=== PATIENT | female | born 1965 | race African-American/Black ===

== ENCOUNTER 2018-03-30 10:48 | Outpatient (CLI) | payer BC, OTHER ==
--- NOTE | 2018-03-31 09:57 | Mammography Report ---
Reason: SCREENING MAMMO Procedure Date: 03/30/2018 Accession Number: [id number] / [id number] Procedure: MGN - Screening Mammo Dig Bilat CPT Code: FULL RESULT: EXAM: Screening Mammo Dig Bilat DATE: 03/30/2018 11:08 AM CLINICAL HISTORY: Screening encounter. Family history of breast cancer in a sister at the age of 27 and an aunt at the age of 32. TECHNIQUE: Bilateral CC and MLO views were obtained. COMPARISON: 09/25/2010 through 01/08/2007. FINDINGS: The breasts demonstrate scattered fibroglandular densities bilaterally. Previously surveyed right breast calcifications in the right breast demonstrate no significant interval change compared to 2011, typically benign. No suspicious masses, clustered microcalcifications, or regions of architectural distortion are identified. IMPRESSION: Benign findings RECOMMENDATION: Routine annual screening unless otherwise clinically indicated. BIRADS CATEGORY 2: Benign findings STANDARD QUALIFYING STATEMENTS: 1. This examination was reviewed with the aid of Computer-Aided Detection (CAD). 2. A negative or benign imaging report should not preclude biopsy if clinically suspicious findings are present. 3. Dense breasts may obscure an underlying neoplasm. 4. This examination was reviewed without the aid of 3D breast imaging (tomosynthesis).
== END 2018-03-30 10:49 | disposition home or self-care (01) ==
LOC: DI.N 10:48
PROVIDERS: ATTEND Obstetrics & Gynecology
DX: Z12.31 Encounter for screening mammogram for malignant neoplasm of breast (principal); Z80.3 Family history of malignant neoplasm of breast
CPT/HCPCS: 77067

== ENCOUNTER 2018-04-09 13:16 | Outpatient (CLI) | payer BC, OTHER ==
--- NOTE | 2018-04-09 18:38 | XRAY Report ---
Reason: PAIN IN FINGER Procedure Date: 04/09/2018 Accession Number: [id number] / [id number] Procedure: XRN - Finger(s) LT CPT Code: FULL RESULT: EXAM: LEFT RING FINGER RADIOGRAPHY EXAM DATE: 04/09/2018 01:32 PM. CLINICAL HISTORY: PAIN IN FINGER. COMPARISON: None. TECHNIQUE: 3 views. FINDINGS: Bones: No fracture or bone lesion. Joints: No subluxations. Soft Tissues: No soft tissue swelling. IMPRESSION: Normal left ring finger radiography RADIA
== END 2018-04-09 13:17 | disposition home or self-care (01) ==
LOC: DI.N 13:16
PROVIDERS: ATTEND Internal Medicine
DX: M79.645 Pain in left finger(s) (principal); M06.9 Rheumatoid arthritis, unspecified; M13.89 Other specified arthritis, multiple sites; M79.7 Fibromyalgia; M85.80 Other specified disorders of bone density and structure, unspecified site
CPT/HCPCS: 73140

== ENCOUNTER 2018-10-03 15:14 | Outpatient (CLI) | payer BC, OTHER ==
--- NOTE | 2018-10-05 08:21 | Ultrasound Report ---
Reason: HEREDITARY AND IDIOPATHIC NEUROPATHY, UNSPECIFIED Procedure Date: 10/03/2018 Accession Number: [id number] / [id number] Procedure: US - Duplex Lwr Ext Arterial Bilat CPT Code: FULL RESULT: EXAM: Bilateral Lower Extremity Arterial Doppler Ultrasound EXAM DATE: 10/03/2018 04:08 PM. CLINICAL HISTORY: Hereditary and idiopathic neuropathy, unspecified in a 53-year-old female. COMPARISON: None. TECHNIQUE: Real-time sonographic vascular imaging was performed by the medical underwriter, utilizing color-flow, Doppler flow, and spectral analysis. Multiple community representative static images were saved for review. FINDINGS: Arterial flow well demonstrated bilaterally with normal blood flow and PSV. No obstruction, extensive atherosclerotic plaque or other abnormality noted. Right Lower Extremity: DECALER: PSV 102 cm/sec. Triphasic waveform. PSFA: PSV 108 cm/sec. Triphasic waveform. MSFA: PSV 91 cm/sec. Triphasic waveform. DSFA: PSV 65 cm/sec. Triphasic waveform. PFA: PSV 64 cm/sec. Monophasic waveform. POP: PSV 52 cm/sec. Triphasic waveform. PARUL: PSV 48 cm/sec. Triphasic waveform. PRODUCT EVANGELIST: PSV 67 cm/sec. Triphasic waveform. TA: PSV 53 cm/sec. Triphasic waveform. DPA: PSV 70 cm/sec. Triphasic waveform. Left Lower Extremity: DECALER: PSV 90 cm/sec. Triphasic waveform. PSFA: PSV 115 cm/sec. Triphasic waveform. MSFA: PSV 79 cm/sec. Triphasic waveform. DSFA: PSV 78 cm/sec. Triphasic waveform. PFA: PSV 64 cm/sec. Triphasic waveform. POP: PSV 61 cm/sec. Triphasic waveform. PARUL: PSV 58 cm/sec. Triphasic waveform. PRODUCT EVANGELIST: PSV 46 cm/sec. Triphasic waveform. TA: PSV 29 cm/sec. Biphasic waveform. DPA: PSV 63 cm/sec. Triphasic waveform. IMPRESSION: Normal bilateral arterial blood flow both lower extremities. RADIA
== END 2018-10-03 15:15 | disposition home or self-care (01) ==
LOC: DI 15:14
PROVIDERS: ATTEND Internal Medicine
DX: G60.9 Hereditary and idiopathic neuropathy, unspecified (principal)
CPT/HCPCS: 93925

== ENCOUNTER 2018-10-09 14:52 | Outpatient (CLI) | payer BC, OTHER | END 2018-10-09 23:59 | disposition home or self-care (01) | LOC: LAB.R 14:52 | PROVIDERS: ATTEND Physician Assistant Medical | DX: R35.0 Frequency of micturition (principal) | CPT/HCPCS: 87086 ==

== ENCOUNTER 2019-09-14 13:49 | Outpatient (CLI) | payer BC, OTHER ==
[2019-09-14] MEDS ORDERED: GADOBUTROL 7.5 MMOL/7.5 ML VIAL ONE (13:57)
[2019-09-14] MEDS ORDERED: GADOBUTROL 7.5 MMOL/7.5 ML VIAL IVP ONE (15:23)
--- NOTE | 2019-09-14 16:48 | MRI Report ---
PROCEDURE: Brachial Plexus W/WO INDICATIONS: NEOPLASM OF UNCERT BEHAV OF CONNECTV SOFT TISS CONTRAST: IV CONTRAST: Gadavist ml: 7.5 TECHNIQUE: Noncontrast axial, coronal, and sagittal T1 spin echo and STIR through the affected brachial plexus r egion. Additional axial T1 spin echo and coronal T2 fast spin echo acquired through both brachial pl exuses with a large [id number]. Optional contrast may be given, followed by axial, coronal, and s agittal T1 spin echo with fat saturation through the affected side. COMPARISON: None. FINDINGS: Image quality: Motion artifact is noted. Brachial plexus: The brachioplexus demonstrates an unremarkable appearance, without jann abnormal s ignal or enhancement. There is minimal mass effect seen upon the brachial plexus from the right supra clavicular mass. Soft tissues: There is a soft tissue mass seen within the supraclavicular region posteriorly that me asures 4.8 x 3.2 x 3.6 cm. This mass demonstrates a heterogeneous appearance and demonstrates relativ franck prominent enhancement. This mass is seen posterior to the brachial plexus, although it abuts the brachial plexus on several images, as on series 401 image 4. A similar-appearing mass can be seen inv olving the left supraclavicular region anteriorly, as on series 401 image 9 and on series 701 image 4 measuring 1.4 x 1.7 cm in greatest axial dimension and measures 1.9 cm craniocaudally. No supraclavicular adenopathy by size criteria. Superior pleural surfaces are normal in thickness. Jugular veins and carotid arteries appear normal in size. Bones: Marrow demonstrates normal overall signal. S-shaped scoliotic curvature is incidentally not ed. IMPRESSION: Bilateral supraclavicular masses are seen. Differential diagnosis includes schwannoma, schwannoma, an d metastatic disease. The right-sided mass is seen posterior to the brachial plexus, yet is seen immediately adjacent to th e brachial plexus on several images. Mild mass effect is seen upon the brachial plexus from posterior ly. The right brachial plexus itself demonstrates no significant abnormality or abnormal enhancement on these images. Please correlate with patient's symptoms. Reviewed by: Basim Whitfield MD on 09/14/2019 3:47 PM KT Approved by: Basim Whitfield MD on 09/14/2019 3:47 PM AKRHONDA Station ID: [id number]
== END 2019-09-14 13:50 | disposition home or self-care (01) ==
LOC: DI 13:49
PROVIDERS: ATTEND Psychiatry & Neurology Neurology
DX: R22.1 Localized swelling, mass and lump, neck (principal)
CPT/HCPCS: 71552; A9585

== ENCOUNTER 2023-04-01 11:24 | Emergency (ER) | payer BC, OTHER ==
[2023-04-01 12:48] LABS: BILIRUBIN,URINE NEGATIVE (NEGATIVE); GLUCOSE, URINE (UA) NEGATIVE (NEGATIVE); KETONES,URINE (UA) NEGATIVE (NEGATIVE); LEUKOCYTE ESTERASE, URINE NEGATIVE (NEGATIVE); NITRITE,URINE NEGATIVE (NEGATIVE); OCCULT BLOOD,URINE NEGATIVE (NEGATIVE); PROTEIN,URINE NEGATIVE (NEGATIVE); UROBILINOGEN,URINE 0.2 (NORMAL) E.U./dL (NORMAL)
[2023-04-01 12:50] LABS: CLARITY,URINE CLEAR (CLEAR)
[2023-04-01] MEDS ORDERED: DEXAMETHASONE 10 MG/ML VIAL IM STA (12:56)
[2023-04-01] MEDS ORDERED: HYDROmorphone 1 MG/ML CARPUJECT IM STA (12:56)
--- NOTE | 2023-04-01 14:14 | ED Physician Documentation ---
History of Present Illness - Stated complaint Stated Complaint: BACK PX - Chief complaint Chief Complaint: Back Pain - History obtained from History obtained from: Patient - Additonal information Additional information: The pt is sent to the ED for CC of low back pain. This has been going on for years and gradually worsening. She had MRI a long time ago, and has been seeing a loan documentation specialist, who would like to get MRI and most likely, do surgery, per pt. The pt is awaiting MRI at this time. The pt was sent here from urgent care because she has decreased sensation in both legs and per urgent care provider, reported "saddle anesthesia". The urgent care provider stated she did not examine the pt to determine whether the pt had absent sensation in her perineal area. The pt states that the numbness has been going on for a long time, and extends all the way up her legs. She has reported all sx to her neurosurgeon. She denies new or acutely worsening sx. No incontinence of urine or feces. No retention. No weakness in legs that is new, though pt states with the decreased sensation, she cannot use her legs well. No fevers. No other complaints at this time. The pt states she is trying to get better pain control so she can tolerate MRI. Currently, she is not on any prescription analgesia. PD PAST MEDICAL HISTORY - Past Medical History Past Medical History: Yes Cardiovascular: None Respiratory: None Neuro: None Endocrine/Autoimmune: None GI: None MASS SPECTROMETRY MANAGER: None : None HEENT: None Psych: None Musculoskeletal: Osteoarthritis, Chronic back pain Derm: None - Past Surgical History Past Surgical History: Yes Ortho: Knee replacement, Shoulder arthroplasty, Carpal Tunnel surgery, Other /MASS SPECTROMETRY MANAGER: Hysterectomy - Present Medications Home Medications: Ambulatory Orders Medication Instructions Recorded Confirmed DULoxetine [Cymbalta] 60 mg PO DAILY 04/01/23 04/01/23 Gabapentin [Neurontin] 300 mg PO TID 04/01/23 04/01/23 HYDROcod/ACETAM 5/325 [[place] 5/325] 1 - 2 tablet PO Q6H PRN #20 tablet 04/01/23 Meloxicam 7.5 mg PO DAILY 04/01/23 04/01/23 predniSONE [Deltasone] 10 mg PO [id number] #42 tab 04/01/23 - Allergies Allergies/Adverse Reactions: Allergies Allergy/AdvReac Type Severity Reaction Status Date / Time latex Allergy Hives Verified 04/01/23 11:39 morphine Allergy Hives Verified 04/01/23 11:39 - Social History Does the pt smoke?: No Smoking Status: Never smoker Does the pt drink ETOH?: Yes ETOH Use: Wine Does the pt have substance abuse?: No - Immunizations Immunizations are current?: No PD ED PE NORMAL - Vitals Vital signs reviewed: Yes - General General: Alert and oriented X 3, No acute distress, Well developed/nourished - HEENT HEENT: Atraumatic, PERRL, EOMI, Moist mucous membranes - Neck Neck: Supple, no meningeal sign - Cardiac Cardiac: RRR, No murmur, Strong equal pulses - Respiratory Respiratory: No respiratory distress, Clear bilaterally - Abdomen Abdomen: Soft, Non tender, Non distended - Back Back: Other (TTP broadly across lumbar area, including spine and musculature, but most pronounced in the musculature. No palpable deformity.) - Derm Derm: Normal color, Warm and dry, No rash - Extremities Extremities: No deformity, No edema - Neuro Neuro: Alert and oriented X 3, recovery assistant 2-12 intact, Normal speech, Other (The pt ambulates with a walker and has symmetrically decreased sensation in both lower extremities.) - Psych Psych: Normal mood, Normal affect Results - Vitals Vitals: Oxygen O2 Source Room air - Labs Labs: Laboratory Tests 04/01/23 12:42 Urine Color YELLOW Urine Clarity CLEAR Urine pH 6.0 Ur Specific Duson 1.025 Urine Protein NEGATIVE Urine Glucose (UA) NEGATIVE Urine Ketones NEGATIVE Urine Occult Blood NEGATIVE Urine Nitrite NEGATIVE Urine Bilirubin NEGATIVE Urine Urobilinogen 0.2 (NORMAL) Ur Leukocyte Esterase NEGATIVE Ur Microscopic Review NOT INDICATED Urine Culture Comments NOT INDICATED PD Medical Decision Making - ED course Complexity details: considered differential, d/w patient ED course: The pt had chronic sx which were gradually worsening, and was already under the care of a neurosurgeon, with plans for definitive management. I did not find evidence of acute worsening that would raise concern for acute spinal cord compromise. As such, I did offer symptomatic treatment in the ED and as an outpatient, and have advised the pt to continue to work with her loan documentation specialist. We have discussed the usual indications for return. Departure - Departure Disposition: 01 Home, Self Care Clinical Impression: Back pain Qualifiers: Back pain location: low back pain Chronicity: chronic Back pain laterality: bilateral Sciatica presence: without sciatica Qualified Code(s): M54.50 - Low back pain, unspecified Condition: Stable Instructions: ED Chronic Pain Management, ED Neck Back Pain General Prescriptions: predniSONE [Deltasone] 10 mg PO [id number] #42 tab HYDROcod/ACETAM 5/325 [[place] 5/325] 1 - 2 tablet PO Q6H PRN #20 tablet PRN Reason: Pain Comments: There is no evidence of an emergent condition today. It is very important that you continue to work with your primary doctor and loan documentation specialist to get the MRI done so you can move forward with surgery. We have started you on some medication to hopefully help get your back pain doing better so you can get your MRI. A prescription has been electronically transmitted to the [facility] in [place], your pharmacy of choice on record. Please pick this up this afternoon. Discharge Date/Time: 04/01/23 14:27
[2023-04-01 14:30] VITALS: BP 117/90; O2SAT 98
== END 2023-04-01 14:27 | disposition home or self-care (01) ==
LOC: ED 11:24
DX: M54.50 Low back pain, unspecified (principal)
CPT/HCPCS: 81003; 96372; 99283; J1170; 81001; 87086

== ENCOUNTER 2024-01-13 09:10 | Inpatient (IN) ==
--- NOTE | 2024-01-13 11:11 | ED Physician Documentation ---
PD HPI ANIMAL BITE Stated complaint Stated Complaint: DOG BITE Chief complaint Chief Complaint: Wound History obtained from History obtained from: Patient (This is a right-handed woman with unknown tetanus status with history of back issues but otherwise medically healthy. She actually rolled over her dog and it bit her with wounds on the left forearm. No other injuries. Pain is severe.) Meds/Allgy Home Medications Ambulatory Orders Medication Instructions Recorded Confirmed duloxetine 30 mg capsule,delayed 60 mg PO DAILY 04/01/23 04/01/23 release gabapentin 300 mg capsule 300 mg PO TID 04/01/23 04/01/23 hydrocodone 5 mg-acetaminophen 325 1 - 2 tab PO Q6H PRN Pain #20 tabs 04/01/23 mg tablet meloxicam 7.5 mg tablet 7.5 mg PO DAILY 04/01/23 04/01/23 prednisone 10 mg tablet 10 mg PO [id number] #42 tabs 04/01/23 Allergies Allergies Allergy/AdvReac Type Severity Reaction Status Date / Time latex Allergy Hives Verified 01/13/24 09:50 morphine Allergy Hives Verified 01/13/24 09:50 [facility] Medical History Medical History (Updated 01/13/24 @ 11:21 by Antony Nobles MD) Chronic back pain Surgical History Surgical History (Updated 01/13/24 @ 09:49 by Ariane Sparks RN, BSN) S/P hernia repair Social History Social History Smoking Status: Never smoker Do you vape?: No Relationship: Do you feel safe in your home environment?: Yes Suffered physical, verbal, emotional, or financial abuse?: No History of Abuse: No ETOH Use: Wine Frequency: Occasional POLST Patient has POLST: No Exam Constitutional normal general appearance Extremities On the dorsal forearm there are 2 larger lacerations about two [address] way down the forearm, on the anterior forearm there are several puncture wounds. She has diminished sensation in a ulnar distribution but not absent. Tendon strength will be tested after pain medication and anesthesia. Results Vitals Vitals: Vital Signs - 24 hr 01/13/24 09:20 01/13/24 11:21 01/13/24 11:21 Temperature 36.8 C Pulse Rate 69 Respiratory Rate 18 Blood Pressure 143/81 H O2 Saturation 100 O2 Source Room air Pain Intensity 10 10 10 10/22/24 11:37 Temperature Pulse Rate 77 Respiratory Rate 20 Blood Pressure 139/103 H O2 Saturation 97 O2 Source Room air Pain Intensity 10 Oxygen O2 Source Room air Procedures Splint (location) - Minor Left forearm: Splint applied by: Physician Type of splint: Fiberglass, Short arm and Volar cock up Other: Patient tolerated well PD Medical Decision Making ED course ED course: She is significant dog bite wounds to the left forearm, tetanus was updated and I ordered a dose of Unasyn. X-ray demonstrates an angulated distal ulnar fracture which would be considered an open injury and I discussed the case by phone with Dr. Marcos Mahoney at 11:15 AM who plans to take her to the operating room later in the day. He does asked that we irrigated and I will get her some pain control first as she has been in quite a bit of pain. Dr. Mahoney requested elbow x-rays which were performed as well. Then I irrigated the wounds with 2 L of saline, placed in bacitracin, Telfa, and a splint to temporize pain until she gets to the OR. Discharge Plan Discharge Patient Disposition: ED Transfer to [facility] Condition: Stable Clinical Impression: Animal bite with open wound Open fracture of left ulna Qualifiers: Encounter type: initial encounter Ulna location: distal Open fracture type: open type I or II Fracture morphology: other fracture Qualified Code(s): S52.692B - Other fracture of lower end of left ulna, initial encounter for open fracture type I or II Prescriptions: No Action meloxicam 7.5 MG tablet 7.5 mg PO DAILY Patient Comments: take 1 tablet by mouth daily gabapentin 300 MG capsule 300 mg PO TID Patient Comments: take 1 capsule by mouth three times a day duloxetine 30 MG capsule,delayed release(DR/EC) 60 mg PO DAILY Patient Comments: Take 2 capsules (60 mg) by mouth daily hydrocodone-acetaminophen 1 TAB tablet 1 - 2 tab PO Q6H PRN (Reason: Pain) Qty: 20 0RF Rx Instructions: Take 1-2 tablets every 6 hours as needed prednisone 10 MG tablet 10 mg PO [id number] Qty: 42 0RF Rx Instructions: Day 1-4: Take 60mg (6 tablets) daily; Day 5-7: Take 40mg (4 tablets) daily; Day 8-10: Take 20mg (2 tablets) daily Print Language: Czech Stand Alone Forms: PCP List
[2024-01-13] MEDS: LIDOCAINE 1%-EPI 1:100000 20 ML MDV SUBQ STA (11:20)
[2024-01-13] MEDS: HYDROmorphone 1 MG/ML CARPUJECT IVP STA ×3 (11:21→14:19)
[2024-01-13] MEDS: KETOROLAC 15 MG/ML VIAL IVP STA (11:21)
[2024-01-13] MEDS: AMPICILLIN/SULBACTAM 3 GM in SODIUM CHLORIDE 0.9% MINIBAG 100 ML IV STA (11:23)
--- NOTE | 2024-01-13 11:29 | XRAY Report ---
PROCEDURE: XR Forearm LT INDICATIONS: dog bite TECHNIQUE: 2 views of the forearm were acquired. COMPARISON: None. FINDINGS: Bones: Transverse, displaced fracture of the distal ulna. Soft tissues: No suspicious soft tissue calcifications or masses. Defect in the lateral soft tissues consistent with laceration. IMPRESSION: Displaced distal ulnar fracture. Reviewed by: Yanely King MD, PhD on 01/13/2024 11:27 AM PDT Approved by: Yanely King MD, PhD on 01/13/2024 11:27 AM PDT Station ID: [id number]
[2024-01-13] MEDS: BACITRACIN ZINC OINT 1 PACKET TOP STA (11:45)
--- NOTE | 2024-01-13 11:48 | XRAY Report ---
PROCEDURE: XR Elbow 3+V LT INDICATIONS: forearm injury, pain TECHNIQUE: 3 views of the elbow were acquired. COMPARISON: None. FINDINGS: Bones: No fractures or dislocations. No suspicious bony lesions. Soft tissues: No effusion. No suspicious soft tissue calcifications or masses. IMPRESSION: No acute bony abnormality or significant joint effusion. Reviewed by: Yanely King MD, PhD on 01/13/2024 11:46 AM PDT Approved by: Yanely King MD, PhD on 01/13/2024 11:46 AM PDT Station ID: [id number]
--- OUTSIDE RECORDS SUMMARY | 2024-01-13 14:49 | EXTERNAL MEDICAL SUMMARY RPT ---
Author Name Santino Esposito Address Unknown Organization [facility] Address [address] [place] [address] Phone [phone] Care Team Providers Care Circuit Board Inspector Name Role Phone Lyndon OLIVIERGermaineMackenzie Unavailable [phone] Jason ROSALES-CEstrellita Unavailable [phone] PROBLEMS Condition Status Date Provider Notes Sciatica, right side active [place] PA-C Back pain, low active [place] PA -C GOUT active Estrellita ROSALES-C FOOT PAIN completed - Estrellita Gomez PA-C EDEMA active Estrellita Gomez PA-C VAGINITIS/VULVOVAGINIT IS NOS active Bethel Gonsalves D.O. URINARY FREQUENCY active Estrellita Gomez P A-C U R I completed - Estrellita Gomez PA-C DIARRHEA completed - Estrellita Gomez PA-C VENTRAL HERNIA active Estrellita Gomez PA-C ABDOMINAL PAIN, LEFT LOWER QUADRANT completed - Estrellita Gomez PA-C PNEUMONIA active Estrellita Gomez PA-C HOT FLASHES active Panfilo Serra MD ARTHRITIS, PYOGENIC, SHOULDER active Panfilo Serra MD DERMATITIS, CONTACT, NOS active Estrellita L Young PA-C BRONCHITIS, ACUTE active Preston morales, Credit Resolution Representative PARONYCHIA completed - Dwight Anderson MD EUSTACHIAN TUBE DYSFUNCTION active Dwight Anderson MD ASTHMA active Dwight Anderson MD BRONCHITIS-ACUTE completed - Dwight Anderson MD TUBAL LIGATION, HX OF active Preston Pennington, Credit Resolution Representative FRACTURE, ANKLE, RIGHT active Preston Pennington, Credit Resolution Representative repair with pin/plate x OVERWEIGHT active Preston Pennington, Credit Resolution Representative MIGRAINE HEADACHE active Preston morales, Credit Resolution Representative GERD active Preston Pennington, Credit Resolution Representative ENCOUNTERS Date Type Provider Location Encounter Diagnosis - Registration status (finding) Registration Update TXITG Admin [facility] ALLERGIES Allergy Name Onset Date Reaction Criticality Status LATEX rash rash High Criticality active MORPHINE itch, rash High Criticality active HISTORY OF MEDICATION USE Medication Status Instructions Dates Provider Indications Com ments tramadol 50 mg tablet active Take 1 tablet by mouth at bedtime [place] PA-C meloxicam 15 mg tablet active Take 1 tablet by mouth once a day as needed for pain for pain [place] PA-C PROAIR HFA 108 active Inhale 2 puff every four hours as needed Aneudy Gallagher MA albuterol sulfate 2.5 mg/3 mL (0.083 %) solution for nebulization active 1 ampul every four hours as needed Aneudy Gallagher MA ZITHROMAX Z-ANGELINE 250 MG ORAL TABLET completed Take two tablets by mouth today, then one daily for four days - Estrellita Gomez PA-C FLOVENT HFA 110 MCG/ACT INHALATION AEROSOL completed 2 inhalations twice daily, rinse out mouth after use - Sherlyn Rust LPN, Lead CHERATUSSIN AC 100-10 MG/5ML ORAL SYRUP completed 1-2 teaspoon every four to six hours as needed - Aneudy Gallagher MA prednisone 20 mg tablet completed Take 2 by mouth once a day - Aneudy Gallagher MA ZITHROMAX Z-ANGELINE 250 MG ORAL TABLET completed 2 po today, then one daily x 4days - Panfilo Serra MD CHERATUSSIN AC 100-10 MG/5ML ORAL SYRUP completed one to 2 teaspoons every four to six hours if needed for cough - Belen Vogel MA PREDNISONE 20 MG ORAL TABLET completed 2 po daily for 5 days - Kristin Penny LPN ZITHROMAX Z-ANGELINE 250 MG ORAL TABLET completed 2 po today, then one daily x 4days - Estrellita Gomez PA-C Colcrys 0.6 mg tablet active 1 po up to three times a day as needed for gout attacks, taper as sx improve Aneudy Gallagher MA VICODIN 5-500 MG TABS completed 1-2 PO every 6 hours PRN Pain - Belen Vogel MA MEDROL 4 MG ORAL TABLET THERAPY PACK completed as directed - Estrellita Gomez PA-C CELEBREX 200 MG ORAL CAPSULE completed Take one po daily - Belen Vogel MA Migranal 0.5 mg/pump act. (4 mg/mL) spray,non-aeros ol active 1 spray into both nostrils Aneudy Gallagher MA Ventolin HFA 90 mcg/actuation HFA aerosol inhaler completed 2 puff every four hours as needed - Aneudy Gallagher MA ZITHROMAX Z-ANGELINE 250 MG ORAL TABLET completed 2 po today, then one daily x 4days - Estrellita Gomez PA-C PREDNISONE 20 MG ORAL TABLET completed 2 po daily for 5 days - Kristin Penny LPN nystatin 100,000 unit/gram ointment completed Apply twice a day as needed - Aneudy Gallagher MA DIFLUCAN 150 MG ORAL TABLET completed one po daily for 3 days - [place] H ROBIN Penny FLONASE 50 MCG/ACT NASAL SUSPENSION active 2 spray into both nostrils once a day Aneudy Gallagher MA METROGEL-VAGINA L 0.75 % VAGINAL GEL completed place 1 applicator intravaginally qhs - Bethel Humphrey Schejasminet D.O. PROMETHAZINE HCL 25 MG ORAL TABLET completed 1 PO q6 hours prn nausea - [place] Melody Penny LPN CLEOCIN 150 MG ORAL CAPSULE completed Take 2 capsules by mouth four times a day - Bethel Humphrey Scheidt D.O. AMOXICILLIN 500 MG ORAL CAPSULE completed One capsule by mouth three times a day - Bethel Humphrey Scheidt D.O. Percocet 10-325 mg tablet completed 1 by mouth every four hours as needed - Aneudy Gallagher MA Premarin 0.625 mg tablet active 1 tablet once a day Aneudy Gallagher MA Zyrtec 10 mg tablet active 1 tablet once a day Aneudy Gallagher MA LEVAQUIN 500 MG ORAL TABLET completed 1 PO daily - Estrellita Gomez PA-C CHERATUSSIN AC 100-10 MG/5ML ORAL SYRUP completed one to 2 teaspoons every four to six hours if needed for cough - [place] Melody Penny LPN ESTRADIOL 1 MG ORAL TABLET completed one tablet po daily - Eleanor Ruiz LPN PREDNISONE 20 MG ORAL TABLET completed 2 po daily for 5 days - Eleanor Ruiz LPN PROTOPIC 0.1 % EXTERNAL OINTMENT completed apply twice daily to affected area - [place] Townsamuel PennyROBIN Singulair 10 mg tablet active 1 by mouth once a day Aneudy Gallagher MA ADVAIR DISKUS 250-50 MCG/DOSE INHALATION AEROSOL POWDER BREATH ACTIVATED completed 1 inhalation twice daily - Estrellita Gomez PA-C Combivent Respimat 20-100 mcg/actuation mist active 1 puff four times a day Aneudy Gallagher MA HYCOTUSS EXPECTORANT 5-100 MG/5ML SYRP completed 1 to 2 tsps po q 4-6 hrs prn cough - Eleanor Ruiz LPN ZITHROMAX Z-ANGELINE 250 MG ORAL TABLET completed 2 po today, then one daily x 4days - Maxim Nichols M.D. ZANTAC 150 MG ORAL TABLET active 1 by mouth once a day Aneudy Gallagher MA GAS-X 80 MG ORAL TABLET CHEWABLE active Preston Pennington, Credit Resolution Representative DETROL LA 4 MG ORAL CAPSULE EXTENDED RELEASE 24 HOUR completed one po daily - Eleanor Ruiz LPN TREATMENT PLAN Date Name PHYSICAL THERAPY CON SULTATION HISTORY OF PROCEDURES Procedure Date Procedure Name Provider Procedure Notes S tatus IM or SQ Injection [place] PA-C completed Ketorolac Tromethami ne 15 mg/ml Soln [place] PA-C completed POC URINALYSIS DIP [place] PA-C completed Visit Code Hold [place] PA-C completed Nebulizer Treatment Estrellita L Y oung PA-C completed ADVANCE DIRECTIVES Name Date [facility] CONSENT TO CONFIRMATION OF APPT DATE/TIME 01/05/15 - [facility] 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 RX [employer]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 01/05/15 - [facility] CONSENT TO RELEASE ALL HEALTHCA RE INFO 01/05/15 - FAMILY/RX HIPAA - TAYLER DINERO 10-09-0912/28/21 - SOCIAL HISTORY Date Observation Value Provider social history [facility] E&M reviewed - no changes required [place] PA-C drug use no Shira [place] C-MA alcohol use no Shira [place] C-MA seatbelt usage 100 % Shira O'Ernesto l C-MA exercise type Stairs Shira [place] C-MA physical exercise, frequency, days per week 5 /wk Shria [place] C-MA caffeine use, averag e drinks per day 0 /d Shira [place] C-MA passive cigarette sm seferino exposure no Shira [place] C-MA chewing tobacco use Never Shira O '[place] C-MA smoking status Never smoker Shira O'Ernesto l C-MA seatbelt usage 100 % Sherlyn Rust MAINTENANCE REPAIRMAN, Lead physical exercise, frequency, days per week 5 /wk Sherlyn Rust MAINTENANCE REPAIRMAN, Lead alcohol use no Sherlyn Rust L PN, Lead caffeine use, averag e drinks per day 0 /d Sherlyn Rust MAINTENANCE REPAIRMAN, Lead drug use no Sherlyn Reece PN, Lead passive cigarette sm seferino exposure no Sherlyn Rust MAINTENANCE REPAIRMAN, Lead chewing tobacco use Never Sherlyn Rust MAINTENANCE REPAIRMAN, Lead smoking status Never smoker Sherlyn Rust MAINTENANCE REPAIRMAN, Lead passive cigarette sm seferino exposure no Belen Vogel MA chewing tobacco use Never Belen Vogel MA smoking status Never smoker Belen Vogel MA smoking status never [place] H Pe n[place], MAINTENANCE REPAIRMAN smoking status never [place] H Pe n[place], MAINTENANCE REPAIRMAN seatbelt usage 100 % Crystal TL Ru ybal, MAINTENANCE REPAIRMAN exercise type Stairs Crystal TL Jose Eduardo bal, MAINTENANCE REPAIRMAN physical exercise, frequency, days per week 7 /wk Crystal TL Ruybal, MAINTENANCE REPAIRMAN alcohol use, type Once in a while Crystal TL Ruybal, MAINTENANCE REPAIRMAN caffeine use, averag e drinks per day 0 /d Crystal TL Ruybal, MAINTENANCE REPAIRMAN drug use no Crystal TL Ruyb al, MAINTENANCE REPAIRMAN passive cigarette sm seferino exposure no Crystal TL Ruybal, MAINTENANCE REPAIRMAN social history revie wed E&M reviewed - no changes required Kayla Rojas MA social history E&M Patient has n ever smoked. A lcohol Use - yes Kayla Rojas MA smoking status never Kayla pan MA smoking status never [place] RADHA [employer] VITAL SIGNS Date Observation Value Provider blood pressure, cuff size large Ch Vish Argueta Edwards-Linda [place] blood pressure, site #1 L. arm sitting Ch Vish Argueta Edwards-Linda NIDIA blood pressure, diastolic 92 mm[Hg] Ch Vish Argueta Yong-Linda NIDIA blood pressure, systolic 138 mm[Hg] Chr isSamia Argueta Yong-Linda NIDIA pulse rate 62 /min Aneudy pipern-Linda NIDIA respiratory rate E&M 18 /min Kalina Argueta Yong-Linda NIDIA temperature site oral Aneudy Argueta Yong-Linda NIDIA temperature E&M 98.3 [degF] Aneudy Gallagher MA Body Mass Index (Ratio) 33.30 kg/m2 Abdieli Terra Gallagher MA weight E&M 175.6 [lb_av] Aneudy Romero MA height E&M 61.0 [in_i] Aneudy Tovar MA
[2024-01-13] MEDS ORDERED: SODIUM CHLORIDE FLUSH 0.9% 10 ML SYRINGE IVP PRN (14:52)
[2024-01-13] MEDS ORDERED: ONDANSETRON ODT 4 MG TABLET TL PRN (14:52)
[2024-01-13] MEDS: AMPICILLIN/SULBACTAM 3 GM in SODIUM CHLORIDE 0.9% MINIBAG 100 ML IV SCH ×2 (16:08→22:52)
[2024-01-13] MEDS: GABAPENTIN 300 MG CAPSULE PO SCH (16:08)
[2024-01-13] MEDS: SODIUM CHLORIDE FLUSH 0.9% 10 ML SYRINGE IVP SCH (16:09)
[2024-01-13] MEDS: diphenhydrAMINE 25 MG CAPSULE PO PRN (16:09)
--- NOTE | 2024-01-13 16:40 | PHARMACY PROGRESS NOTE ---
Best Possible Medication History Admit Date and Time: 01/13/24 [id number] Processed by: Pharmacy Medications reviewed in ED?: No Medication History completed: Yes Patient Interview: Completed Secondary Source(s): Insurance records [facility] Statement: As the person ultimately responsible for medication therapy, providers are able to order a medication from an existing home medication list in [facility] via the "Reconcile Routine" prior to Confirmation of that medication by technical sales support specialist. Such practice is discouraged except when the physician, in their clinical judgment, deems that a medical need exists for a medication without regard to previous use.
[2024-01-13] MEDS: oxyCODONE 5 MG TABLET PO PRN (19:33)
[2024-01-13] MEDS: ACETAMINOPHEN 325 MG TABLET PO PRN (19:42)
--- NOTE | 2024-01-13 21:15 | PREOP HISTORY & PHYSICAL ---
Surgical History & Physical Chief Complaint/HPI Chief Complaint: CC: Left Forearm Dog bite and distal ulnar shaft fracture on 01/13/24 History of Present Illness: 58yo F presented to the emergency department on January 13, 2024 from a dog bite. She reports that she was sleeping in the same bed with her sons jayda and when she rolled over on him he bit her left forearm. She had immediate pain and bleeding from the arm. She presented to the emergency department where they found her multiple puncture wounds and open injury. After radiographs they identified a distal ulnar fracture and orthopedics was consulted. On arrival to the emergency room the patient was already splinted and had been injected with local anesthetic. She reports minimal pain in her left forearm. Denies any other injuries. Denies loss of function. Home Meds and Allergies Active Medications Generic Name Dose Route Start Last Admin Trade Name Freq PRN Reason Stop Dose Admin Acetaminophen 650 mg 01/13/24 14:52 01/13/24 19:42 Acetaminophen 325 Mg Tablet PO 650 mg Q4HR PRN Administration Pain 1 to 4, or Fever Diphenhydramine HCl 25 mg 01/13/24 15:57 01/13/24 16:09 Diphenhydramine 25 Mg Capsule PO 25 mg Q8HR PRN Administration Allergy Symptoms Ampicillin Sodium/Sulbactam 100 mls @ 200 mls/hr 01/13/24 22:30 Sodium 3 gm/ Sodium Chloride IV Q6HR LISSETTE Cefazolin Sodium 2 gm/ Sodium 100 mls @ 200 mls/hr 01/14/24 07:00 Chloride IV 01/14/24 07:29 ONCE ONE Ondansetron HCl 4 mg 01/13/24 14:52 Ondansetron Odt 4 Mg Tablet TL Q6HR PRN Nausea / Vomiting Oxycodone HCl 5 mg 01/13/24 14:52 01/13/24 19:33 Oxycodone 5 Mg Tablet PO 5 mg Q4HR PRN Administration Pain 5 to 7 Sodium Chloride 10 ml 01/13/24 14:52 Sodium Chloride Flush 0.9% 10 Ml Syringe IVP PRN PRN NEEDED PER PROVIDER ORDERS Sodium Chloride 10 ml 01/13/24 17:00 01/13/24 16:09 Sodium Chloride Flush 0.9% 10 Ml Syringe IVP 10 ml 0100,0900,1700 LISSETTE Administration acetaminophen 500 mg tablet 500 mg PO Q4H PRN pain 01/13/24 Allergies Allergy/AdvReac Type Severity Reaction Status Date / Time latex Allergy Hives Verified 01/13/24 09:50 morphine Allergy Hives Verified 01/13/24 09:50 Vital Signs O2 Saturation: 96 Patient Review Patient Review Pertinent Tests Reviewed [facility] Medical History Medical History (Updated 01/13/24 @ 11:21 by Antony Nobles MD) Chronic back pain Surgical History Surgical History (Updated 01/13/24 @ 09:49 by Ariane Sparks, RN, BSN) S/P hernia repair Social History Social History Smoking Status: Never smoker Do you vape?: No Relationship: Spouse Level: Independent Home Mobility Equipment: Walker Do you feel safe in your home environment?: Yes Suffered physical, verbal, emotional, or financial abuse?: No History of Abuse: No ETOH Use: Wine Frequency: Occasional Substance Use: cannabis (any form) POLST Patient has POLST: No Exam Exam LEFT forearm: Multiple puncture wounds throughout the volar and dorsal aspect of the forearm. 6 cm laceration over the dorsum of the mid forearm. 2 cm laceration just distal to the larger wound. Moderate edema. No active bleeding. Patient unwilling to participate in motor exam Sensation was diminished due to previous injection 2+ Radial pulse, brisk cap refil to all digitsIMAGING: LEFT Wrist radiographs on January 13, 2024: Comminuted displaced distal ulnar shaft fracture. Multiple soft tissue injuries noted. Assessment & Plan Assessment & Plan Assessment & Plan: 58yo RHD F with open lacerations from a dog bite and distal ulnar fracture. It was explained to the patient that both her open injuries and her displaced ulnar fracture of both surgical indications. I explained to the patient that she will require an open reduction and internal fixation of the distal ulna and irrigation and debridement of all of her open wounds. I would like to admit the patient overnight for IV antibiotics. The emergency department already had started her antibiotics, updated her tetanus and irrigated the wounds. She was placed in a volar resting splint. The risk, benefits and alternatives of the procedure were discussed with the patient to include bleeding, infection, damage to surrounding structures, ongoing pain, malunion, nonunion, need for additional surgeries, symptomatic hardware and anesthesia risk such as heart attack, stroke and . The patient understood these risks and want to move forward with the procedure. She was consented for a left distal ulnar ORIF and left forearm I&D. Consent was completed in the emergency department and her operative extremity was signed. Orthopedic admission Nonweightbearing left upper extremity Volar resting splint IV antibiotics N.p.o. at midnight Operating room tomorrow morning Plan for the patient to stay 2 nights for IV antibiotics and discharge likely on January 15, 2024 The documentation in this note may have been entered with the assistance of computer voice recognition and dictation software. Therefore, it may contain unintended errors in text, spelling, punctuation, or grammar. Marcos Mahoney MD Orthopedic Surgeon
[2024-01-14] MEDS ORDERED: SEVOFLURANE 250 ML LIQUID INH ONE (07:07)
[2024-01-14] MEDS ORDERED: MIDAZOLAM 2 MG/2 ML VIAL ONE (07:08)
[2024-01-14] MEDS ORDERED: fentaNYL 100 MCG/2 ML VIAL ONE ×2 (07:08→09:31)
[2024-01-14] MEDS ORDERED: PROPOFOL 200 MG/20 ML VIAL IVP ONE ×2 (07:08→09:30)
[2024-01-14] MEDS ORDERED: LIDOCAINE-PF 2% 10 ML AMP SUBQ ONE (07:08)
[2024-01-14] MEDS ORDERED: BUPIVACAINE 0.25% PF 30 ML VIAL ONE ×2 (07:09→08:32)
[2024-01-14] MEDS ORDERED: LACTATED RINGERS 1,000 ML ONE (07:21)
[2024-01-14] MEDS ORDERED: ROCURONIUM 50 MG/5 ML VIAL ONE ×2 (07:23→08:56)
--- NOTE | 2024-01-14 07:23 | ANESTHESIA PROCEDURE NOTE ---
Pre-Anesthesia VS, & Labs Diagnosis Surgical Diagnosis:: open L ulnar fx, dog bite wounds Procedure Procedure: ORIF L ulnar fx Vitals Vital Signs: Temp Pulse Resp BP Pulse Ox 37.1 C 96 H 24 136/92 H 98 01/14/24 00:08 01/14/24 00:08 01/14/24 00:08 01/14/24 00:08 01/14/24 00:08 NPO NPO: >8 hours Is Patient ?: No Lab Results Lab results reviewed: Yes Meds/Allgy Home Medications Ambulatory Orders Medication Instructions Recorded Confirmed acetaminophen 500 mg tablet 500 mg PO Q4H PRN pain 01/13/24 01/13/24 Allergies Allergies Allergy/AdvReac Type Severity Reaction Status Date / Time latex Allergy Hives Verified 01/13/24 09:50 morphine Allergy Hives Verified 01/13/24 09:50 PFSH Medical History Medical History (Updated 01/13/24 @ 11:21 by Antony Nobles MD) Chronic back pain Surgical History Surgical History (Updated 01/13/24 @ 09:49 by Ariane Sparks RN, BSN) S/P hernia repair Social History Social History Smoking Status: Never smoker Do you vape?: No Relationship: Spouse Level: Independent Home Mobility Equipment: Walker Do you feel safe in your home environment?: Yes Suffered physical, verbal, emotional, or financial abuse?: No History of Abuse: No ETOH Use: Wine Frequency: Occasional Substance Use: cannabis (any form) POLST Patient has POLST: No Anesthesia Exam (Expanded) Exam General: Alert, Oriented x3 and Cooperative Dental: WNL Mouth Opening: Greater than 4 Fingerbreadths Neck Mobility: Normal Mallampati classification: I Thyromental Distance: 4-6 cm Respiratory: Lungs clear and Normal breath sounds Cardiovascular: Regular rate, Normal S1 and Normal S2 Neurological: Normal speech Mental/Cognitive Status: Alert/Oriented X3 and Normal for patient Cognitive Status: Within normal limits Plan Plan Anesthesia Type: General Consent for Procedure(s) Verified and Reviewed: Yes Code Status: Attempt Resuscitation ASA Classification ASA classification: 2-Mild systemic disease Is this case an emergency?: No
[2024-01-14] MEDS: ceFAZolin (2G) 2 GM in SODIUM CHLORIDE 0.9% MINIBAG 100 ML IV ONE (07:34)
[2024-01-14] MEDS ORDERED: PHENYLEPHRINE HCL 0.5 MG/5 ML AMPULE ONE (08:10)
[2024-01-14] MEDS ORDERED: DEXAMETHASONE 4 MG/ML VIAL ONE (08:16)
[2024-01-14] MEDS ORDERED: ONDANSETRON 4 MG/2 ML VIAL ONE (08:16)
[2024-01-14] MEDS ORDERED: ePHEDrine 50 MG/ML VIAL IVP ONE (08:27)
[2024-01-14] MEDS ORDERED: DULoxetine 60 MG CAPSULE PO SCH (09:00)
[2024-01-14] MEDS ORDERED: SUGAMMADEX 200 MG/2 ML VIAL IVP ONE (09:17)
[2024-01-14] MEDS ORDERED: METOCLOPRAMIDE 10 MG/2 ML VIAL IVP PRN (09:56)
[2024-01-14] MEDS ORDERED: ATROPINE ABBOJECT 1 MG/10 ML SYRINGE IVP PRN (09:56)
[2024-01-14] MEDS ORDERED: MORPHINE 2 MG/ML CARPUJECT IVP PRN (09:56)
[2024-01-14] MEDS ORDERED: NALOXONE 0.4 MG/ML VIAL IVP PRN (09:56)
[2024-01-14] MEDS ORDERED: ePHEDrine 50 MG/ML VIAL IVP PRN (09:56)
[2024-01-14] MEDS ORDERED: ONDANSETRON 4 MG/2 ML VIAL IVP PRN (09:56)
[2024-01-14] MEDS: LACTATED RINGERS 1,000 ML IV SCH (10:06)
[2024-01-14] MEDS: fentaNYL 100 MCG/2 ML VIAL IVP PRN (10:18)
--- NOTE | 2024-01-14 10:44 | XRAY Report ---
PROCEDURE: FL OR C-Arm Procedure INDICATIONS: ORIF LEFT WRIST FLUORO TIME: 0.2 MIN TECHNIQUE: 2 intraoperative views of the left wrist. COMPARISON: Left forearm radiographs 01/13/2024. FINDINGS: Plate and screw fixation spanning the distal ulnar fracture. There is anatomic alignment. Hardware pr ojects in expected location. IMPRESSION: Intraoperative guidance provided. Left distal ulnar ORIF. Reviewed by: Yony Ken MD on 01/14/2024 10:43 AM PDT Approved by: Yony Ken MD on 01/14/2024 10:43 AM PDT Station ID: [id number]
[2024-01-14] MEDS ORDERED: HYDROmorphone 1 MG/ML CARPUJECT ONE (10:46)
[2024-01-14] MEDS: HYDROmorphone 0.5 MG/0.5 ML SYRINGE IVP PRN (10:55)
--- NOTE | 2024-01-14 11:32 | ANESTHESIA POST OP EVALUATION ---
Anesthesia Post Eval Post Anesthesia Eval Vitals: Last Vital Signs Temp 36.7 C 01/14/24 11:10 Pulse 77 01/14/24 11:15 Resp 12 01/14/24 11:15 BP 119/78 01/14/24 11:15 Pulse Ox 97 01/14/24 11:15 CV Function Including HR & BP: Stable Pain Control: Satisfactory Nausea & Vomiting: Negative Mental Status: Baseline Respiratory Status: Airway Patent Hydration Status: Satisfactory Anesthesia Complications: None
--- NOTE | 2024-01-14 13:27 | OPERATIVE REPORT ---
Operative Report General Admit Date: 01/13/24 Procedure Data: Operation Date: 01/14/24 07:30 Proposed Procedures p ORIF LEFT ULNA WITH IRRIGATION & DEBRIDEMENT(Left) - Marcos Mahoney MD Actual Procedures p ORIF LEFT ULNA WITH IRRIGATION & DEBRIDEMENT(Left) - Marcos Mahoney MD Pre-Op Diagnosis: OPEN LT ULNAR FX W/ IRRIGATION & DEBRIDEMENT Anesthesia Type General Case Staff Anesthesia Provider: Bill Castaneda Assisting Provider: Hailee Cummins Rep: HIMA GARCIA. Case Times Into Recovery: 01/14/24 10:06 Procedure Start: 01/14/24 08:24 Procedure End: 01/14/24 10:00 Time out: 01/14/24 08:20 Implants PUTTY BONE MATRIX [id number] SCR CTX 2.7X14MM T8 S-T PLATE 2.7X61MM 8 HOLE COMP SCR CTX 2.7X12MM T8 S-T SCR CTX 2.7X13MM T8 S-T SCR 2.7X12MM LOCK T8 S-T Tourniquet Tourniquet #: Tourniquet Site Padding: Pressure: Applied by: Time up #1: Time Down #1: Time Up #2: Time Down #2: Pre-Op Diagnosis: Dog bite with soft tissue lacerations and distal ulna fracture Post Op Diagnosis: EMILY Procedure Note Estimated Blood Loss (ml): 20 Indications: Unstable open distal ulna fracture with multiple forearm lacerations. Complications: None Other Other Information/Narrative: Pre-Op Diagnosis: Unstable, open distal ulnar fracture and multiple lacerations from a dog bite Post-Op Diagnosis: EMILY Procedure Procedure(s): Open Reduction and Internal Fixation of the Closed Distal Ulna Fracture I&D of the left forearm Surgeon: Marcos Mahoney MD Co-Surgeon: Hailee Cummins PA Physician Shipping Room Helper was used throughout the entirety of the case. They assisted with room set up, patient positioning, draping, retraction, reduction, fixation and closure. They were essential for the success of the case. Anesthesia Type: General EBL: 20cc Specimens Removed: None Complications: None Implants/Grafts: Borrero and Nephew 2.7mm plate and 2.7mm locking screws distally and cortical screws proximally Drains: No lines, drains, or airways are recorded for this episode. Findings: Displaced distal ulna fracture, reduced and fixed Multiple pucture wounds and lacerations about the left forearm Narrative: The patient was met in the pre-operative hold area. Consent was verified. Operative extremity was signed. All questions were answered. They were brought to the operating room and surrendered to anesthesia. Once general anesthesia was obtained they were prepped and draped. A time out was performed. The left forearm lacerations and puncture wounds were all irrigated with 9L of sterile fluid. There was no evidence of gross contamination. An esmarch was used to exsanguinate the limb and the tourniquet was elevated. THe level of fracture was identified with fluoro. This was then the center of the incision. We used a direct lateral approach through skin. Then contineud the dissection with mets. The fracture site was then identified and the fracture was cleaned with knife, currette and irrigation. THere was significant bone loss on the volar aspect of the fracture. We were able to get a good fracture read off the dorsal cortex. THe reduction was performed with axial traction. Since the fracture was transverse we were unable to pin or place a lag screw. We utilized a 2.7 plate to help with the reduction. We confirmed plate location and fracture reduction in AP and lateral fluoro. The place was then held in place with 2 locking 2.7 screws distally and 3 cotrical screws proximally. Her cortical loss volarly was filled with DBX bone puddy. Final images were taken at various angles to confirm the location of the screws and plate. The wound was irrigated copiously. The skin was closed loosely with 3-0 nylon. 50cc of 0.25% marcaine without epinephrine was placed. A sterile dressing and splint was applied. Postoperative Plan: Volar resting splint until 2 weeks. Xrays. Sutures out Short Arm Cast for 2 weeks, xrays Removable brace & ROM for 4 weeks, xrays Advance weight bearing at 8 weeks if things are going well. Foot on the ground activities from 8-12 weeks. Marcos Mahoney MD
--- NOTE | 2024-01-14 16:34 | XRAY Report ---
PROCEDURE: XR Lumbar Spine 2-3V INDICATIONS: Concern for cauda equina syndrome TECHNIQUE: 3 views of the lumbar spine were acquired. COMPARISON: None. FINDINGS: Surgical change: None. Bones: 5 [id number] vertebrae are present. Lower lumbar facet arthropathy. 9 mm anterolisthesis of L4 on L5. 8 mm anterolisthesis of L5 on S1. No vertebral body compression fractures. No suspicio us bony lesions. Soft tissues: Overlying bowel gas pattern is normal. No suspicious soft tissue calcifications. IMPRESSION: Lower lumbar facet arthropathy with anterolisthesis. No acute bony abnormality noted. Comment: It is noted that the patient is scheduled undergo lumbar spine MRI today. Reviewed by: Livan Mason MD on 01/14/2024 4:33 PM PDT Approved by: Livan Mason MD on 01/14/2024 4:33 PM PDT Station ID: [id number]
[2024-01-14] MEDS: LORazepam 1 MG TABLET PO ONE (16:41)
--- NOTE | 2024-01-14 16:50 | XRAY Report ---
PROCEDURE: XR Wrist 1-2V LT INDICATIONS: post operative imaging TECHNIQUE: 2 views of the wrist were acquired. COMPARISON: 01/11/2024 FINDINGS: Bones: Interval surgical fixation of the ulna, with anatomic alignment. Soft tissues: No suspicious soft tissue calcifications or masses. IMPRESSION: Surgical fixation of the ulna, with anatomic alignment. Reviewed by: Xavier Wasserman MD on 01/14/2024 4:49 PM PDT Approved by: Xavier Wasserman MD on 01/14/2024 4:49 PM PDT Station ID: [id number]
--- NOTE | 2024-01-14 17:53 | MRI Report ---
PROCEDURE: MRI Lumbar Spine WO INDICATIONS: Cauda Equina Syndrome Rule Out TECHNIQUE: Noncontrast sagittal T1 spin echo and T2 fast echo, sagittal STIR, axial T1 and T2 fast spin echo thr ough the lumbar spine. In cases with scoliosis, additional coronal T2 fast spin echo may be performe d. COMPARISON: 01/14/2024 FINDINGS: Image quality: Excellent. Alignment and Curvature: 1 cm anterolisthesis of L5 on S1. Bone Marrow: Modic type I changes across L4-5 and Modic type II changes across L5-S1. No acute verte bral body compression fractures. Spinal Cord: Conus medullaris terminates at the L2 level. Visualized cord demonstrates normal signa l and size. Paraspinous Soft Tissues: No paravertebral masses. T12-L1: Facet hypertrophy and small facet effusions. L1-L2: Facet hypertrophy and small facet effusions. L2-L3: Facet hypertrophy and small facet effusions. L3-L4: Facet hypertrophy, ligamentum flavum hypertrophy, broad-based disc bulge causing severe spin al canal narrowing. L4-L5: Facet hypertrophy, ligamentum flavum hypertrophy, broad-based disc bulge causing severe spin al canal narrowing. Severe bilateral neural foraminal narrowing. L5-S1: Facet hypertrophy, ligamentum flavum hypertrophy, broad-based disc bulge causing severe spin al canal narrowing. Severe bilateral neural foraminal narrowing. IMPRESSION: Severe spinal canal narrowing at L3-4, L4-5 and L5-S1 due to degenerative disc disease and facet hype rtrophy. Severe bilateral neural foraminal narrowing at L4-5 and L5-S1. Reviewed by: Xavier Wasserman MD on 01/14/2024 5:51 PM PDT Approved by: Xavier Wasserman MD on 01/14/2024 5:51 PM PDT Station ID: [id number]
[2024-01-14 20:18] VITALS: O2SAT 97
--- NOTE | 2024-01-14 21:21 | Discharge Summary ---
"Discharge Summary Admit Date: 01/13/24 Discharge Date: 01/14/24 Discharging Provider: Hailee Quiles PA-C Primary Care Provider: [facility] Medical Code Status: Attempt Resuscitation DIAGNOSES Admission Diagnoses: Open left ulna fracture Discharge Diagnoses with Status of Each Condition: Open left ulna fracture - ORIF of left ulna with irrigation and debridement Severe spinal and foraminal stenosis - newly reported, unchanged status HPI History of Present Illness: 58 year old female presented to the emergency department on January 13, 2024 from a dog bite to the left arm. She reported that she was sleeping in the same bed with her son's jayda and when she rolled over onto the dog causing the dog to bite her left forearm. She had immediate pain and bleeding from the arm. She presented to the emergency department where she was found to have an open wound and several puncture wounds. Left forearm radiographs identified a distal ulnar fracture and orthopedics was consulted. On arrival of the Orthopedic team to the emergency room, the patient was already splinted and had been injected with local anesthetic.Her wounds were irrigated with 1.5L of normal saline prior to orthopedic evaluation. She reported minimal pain in her left forearm during orthopedic evaluation. She denied any other injuries and loss of function to the left hand. CONSULTS | PROCEDURES Procedures: Open reduction internal fixation - left ulna Lumbar spine radiographs Lumbar spine MRI HOSPITAL COURSE Hospital Course: On January 13, 2024 the patient was admitted to [facility]. She recieved ampicillin/sulbactam IV every 6 hours for management of open left ulna fracture. On 01/14/24 the patient underwent ORIF left unla with plate and screws ([employer]) by Dr Mahoney without complication. The open injury and puncture wounds were irrigated and debrided and approximated loosely with nylon suture. She was placed in a plaster volar splint which was secured with an varghese wrap. There were no known immediate complications. IV antibiotics were resumed upon return to the floor from the operating room. Prior to transfer the patient was planned to discharge home on post operative day 1 after 24 hours of IV antibiotics. She would have then transferred to oral antibiotics and followed up with [facility] 2 weeks after surgery. Upon post operative rounding, the patient stated she had difficulty moving to the bathroom due to poor bowel control. She also endorsed saddle anesthesia and bilateral lower extremity weakness and numbness although she does have a history of peripherial neuropathy. The patient reports a chronic history of lumbar pain which worsened without injury about 2 weeks ago leading to the bowel and bladder incontinence, paresthesias and weakness. She had not mentioned this to her PCP or any other provider during her admission. A Stat MRI of the lumbar spine and radiographs of the lumbar spine were obtained. Imaging indicated severe spinal and foraminal stenosis. In the setting of progressive weakness, saddle anesthesia and bowel and bladder incontinence, the patient was transferred to [facility] for further management due to lack of orthopedic spine surgery at [facility]. Dr Mahoney facilitated this transfer and was present for patient rounding and evaluation. ALLERGIES Allergies Allergy/AdvReac Type Severity Reaction Status Date / Time latex Allergy Hives Verified 01/13/24 09:50 morphine Allergy Hives Verified 01/13/24 09:50 MEDICATIONS Ambulatory Orders Medication Instructions Recorded Confirmed acetaminophen 500 mg tablet 500 mg PO Q4H PRN pain 01/13/24 01/13/24 PHYSICAL EXAM AT DISCHARGE Physical Exam Other/Comments: Well developed, well nourished, 58 year old female, no acute distress, elevated BMI Left wrist: Volar left wrist splint is clean, dry and intact Reported diminished sensation to light touch about C8 nerve distribution only Finger flexion and extension intact post-operatively however limited by patient pain DIAGNOSTIC IMAGING Diagnostic Imaging Results: Final report reviewed FOLLOW UP Follow Up: Dr Marcos Mahoney, [facility] - 2 weeks post operatively TIME SPENT Time Spent in Discharge (Minutes): 30 Discharge Plan Discharge Patient Disposition: 02 Transfer Acute Care Hosp Condition: Stable Prescriptions: No Action acetaminophen 500 mg tablet 500 mg PO Q4H PRN (Reason: pain) Activity Restrictions: Additional Comments Activity Restrictions/Additional Instructions: You had an open reduction internal fixation of the left ulna on 01/14/[address] Mahoney at [facility]. Your dog bite wounds were also washed and closed during this procedure. There were no known immediate complications. You should follow up with your Orthopedic surgeon within 2 weeks of surgery. Please call our office to schedule an appointment at [phone]. Due to concerns with your back pain and inability to control your bowel movements with altered sensation and weakness, you had an MRI of your lumbar spine and radiographs. As a result of these images, you were transferred to [facility]. [facility] does not have a spine surgeon available to treat your back pain acutely. ACTIVITY INSTRUCTIONS * Do not use the left arm for pushing, pulling, or bearing weight until instructed to do so by your provider after your clinic visit. We encourage active movement of the fingers every hour while awake to prevent stiffness. * You must be cleared by your orthopedic provider before operating a vehicle. DRESSING CARE * You have a well-padded, bulky splint in place that is secured with an Varghese bandage. Leave the dressing in place until your follow up visit in clinic. * If you notice fever, chills, redness, excessive drainage or bleeding, a sharp increase in pain that persists after taking pain medication, pain in your calf muscles, chest pain or trouble breathing please unwrap the dressing and investigate. Then call the office with findings for further guidance. If it is after regular clinic hours, please seek care in the emergency department. * If you need to take a shower cover the dressing in a garbage bag and secure it to keep the dressing dry and intact. * In the rare case of any severe chest pain and trouble breathing, seek immediate care, do not delay for a call to the clinic. ADDITIONAL DISCHARGE INSTRUCTIONS * Keep extremity elevated to the level of the heart to reduce swelling. You can use ice on top of the splint to reduce pain and swelling of the extremity. MEDICATIONS * No medications have been prescribed to your pharmacy. Medications may be prescribed by [facility] pending their evaluation and management. Call [facility] after discharge from [facility]. Phone number: [phone] * Dr Mahoney would like you to take antibiotics by mouth when you return home. Please call our office. Diet: Regular Health Concerns: Open left ulna fracture Severe spinal and foraminal stenosis Assessment: This has been discussed verbally with the patient by Dr Mahoney and myself. The patient verbalizes understanding and written instructions were provided as a reminder. Plan of Treatment: Surgical fixation of left ulna with plate and screws and irrigation of wounds - 01/14/24 Transfer to [facility] for further evaluation and management of low back pain Print Language: Divehi Patient Instructions: Surgery Anesthesia After Follow-up Care: Marcos Mahoney MD [Provider Admit Priv/Credential] - [facility]charge [facility]: [facility]
== END 2024-01-14 23:52 | disposition short-term general hospital (02) | DRG 511 ==
LOC: ED 09:10 → MS2 14:07
PROVIDERS: ADMIT Physician Assistant Surgical; ATTEND Physician Assistant Surgical
PROC: [UNRECOGNIZED PROCEDURE] (2024-01-14 07:30)
DX: G89.29 Other chronic pain; R53.1 Weakness; S52.692B Other fracture of lower end of left ulna, initial encounter for open fracture type I or II; M48.00 Spinal stenosis, site unspecified; Y92.003 Bedroom of unspecified non-institutional (private) residence as the place of occurrence of the external cause; G83.4 Cauda equina syndrome; R32 Unspecified urinary incontinence; M54.50 Low back pain, unspecified; R15.9 Full incontinence of feces; W54.0XXA Bitten by dog, initial encounter; Y93.84 Activity, sleeping; R20.0 Anesthesia of skin